=== PATIENT | male | born 1955 | race Caucasian/White ===

== ENCOUNTER → 2021-07-09 | Day surgery (SDC) | payer MEDICARE ==
[~2021-07-09] MED LIST: ADVIL200 MG PO; BLACK ELDERBERRY PO; CEPHALEXIN500 MG PO; CIPRO500 MG PO; CRESTOR10 MG PO; CRESTOR5 MG PO; FISH OIL 1,0001 EAC3 PO; FISH OIL500 MG PO; LIORESAL TAB 1010 MG PO; LOPRESSOR50 MG PO; LORTAB PO; METOPROLOL TART50 MG PO; NEXIUM40 MG PO; NORCO 5-325 TA1 EACH PO; SAW PALMETTO450 MG PO; TRAMADOL HCL50 MG PO; TUMERIC PO; ULTRAM50 MG PO; VITAMIN C500 M4 PO; VITAMIN D325 MC6 PO; VITAMIN E400 UNI1 PO; Vitamin B12 PO; [UNRECOGNIZED DRUG - OTHER] PO; [UNRECOGNIZED DRUG - REMARK] INJ; zinc PO
== END | disposition home or self-care (01) ==
LOC: OR 06:31
DX: Z12.11 Encounter for screening for malignant neoplasm of colon (principal); D12.2 Benign neoplasm of ascending colon; D12.3 Benign neoplasm of transverse colon; K22.70 Barrett's esophagus without dysplasia; K57.30 Diverticulosis of large intestine without perforation or abscess without bleeding; K21.00 Gastro-esophageal reflux disease with esophagitis, without bleeding; K64.0 First degree hemorrhoids; K31.7 Polyp of stomach and duodenum; K31.9 Disease of stomach and duodenum, unspecified; I10 Essential (primary) hypertension; E66.3 Overweight; E78.5 Hyperlipidemia, unspecified; Z68.25 Body mass index [BMI] 25.0-25.9, adult; Z79.891 Long term (current) use of opiate analgesic; Z79.1 Long term (current) use of non-steroidal anti-inflammatories (NSAID); Z79.899 Other long term (current) drug therapy
CPT/HCPCS: J2250; J2704; J3010; J7040

== ENCOUNTER → 2021-11-12 | Day surgery (SDC) | payer MEDICARE ==
[~2021-11-12] MED LIST changes: +AMOXICILLIN500 M1 PO
== END | disposition home or self-care (01) ==
LOC: OR 06:16
DX: Z12.11 Encounter for screening for malignant neoplasm of colon (principal); D12.3 Benign neoplasm of transverse colon; K64.1 Second degree hemorrhoids; K57.30 Diverticulosis of large intestine without perforation or abscess without bleeding; K21.00 Gastro-esophageal reflux disease with esophagitis, without bleeding; Z86.010 Personal history of colon polyps; I10 Essential (primary) hypertension; E78.00 Pure hypercholesterolemia, unspecified; E66.3 Overweight; K22.70 Barrett's esophagus without dysplasia; Z20.822 Contact with and (suspected) exposure to COVID-19
CPT/HCPCS: J2001; J2704; J7040